=== PATIENT | male | born 1940 | race Caucasian/White ===

== ENCOUNTER → 2016-12-17 | Outpatient (CLI) | payer MEDICARE | LOC: KOH-I 15:07 | DX: R05 Cough (principal); M79.671 Pain in right foot; J43.9 Emphysema, unspecified; J98.4 Other disorders of lung; M19.071 Primary osteoarthritis, right ankle and foot; M77.31 Calcaneal spur, right foot | CPT/HCPCS: 71020; 73630 ==

== ENCOUNTER → 2016-12-23 | Outpatient (CLI) | payer MEDICARE | LOC: HEART 5 10:56 | DX: I34.0 Nonrheumatic mitral (valve) insufficiency (principal) | CPT/HCPCS: 93306 ==

== ENCOUNTER → 2020-11-13 | Outpatient (CLI) | payer MEDICARE ==
[~2020-11-13] MED LIST: ATORVASTATIN CA20 MG PO; BREO ELLIPTA 11 EACH INH; CARDURA2 MG PO; GLUCOSAMINE CH1 EAC6 PO; LODINE CAP 300300 MG PO; MYLANTA TONIGH355 ML PO; NORFLEX 100 MG100 MG PO; PRESERVISION A1 EAC2 PO; PROSCAR 5 MG TAB5 MG PO; PROTONIX40 MG PO; SINGULAIR10 MG PO
== END ==
LOC: KOH-I 13:48
DX: R07.89 Other chest pain (principal)
CPT/HCPCS: 71046

== ENCOUNTER 2022-02-10 21:01 | Emergency (ER) | payer MEDICARE ==
[2022-02-11 01:35] LABS: HEMOGLOBIN 13.4 gm/dl (14.0-17.5); RED BLOOD COUNT 4.34 M/UL (4.20-5.50); WHITE BLOOD COUNT 5.4 K/UL (4.5-11.0)
[2022-02-11 01:55] LABS: BUN/CREATININE RATIO 12 (0-10)
== END 2022-02-11 03:55 | disposition home or self-care (01) ==
LOC: ER1 21:01
PROVIDERS: Family Medicine
DX: H81.10 Benign paroxysmal vertigo, unspecified ear (principal); Z88.1 Allergy status to other antibiotic agents
CPT/HCPCS: 70450; 80053; 81001; 82550; 82553; 84439; 84443; 84484; 85025; 99284

== ENCOUNTER → 2022-03-19 | Outpatient (CLI) | payer MEDICARE | LOC: LAB 09:18 | DX: R07.9 Chest pain, unspecified (principal); E78.00 Pure hypercholesterolemia, unspecified; E78.5 Hyperlipidemia, unspecified | CPT/HCPCS: 36415; 80061 ==